=== PATIENT | female | born 1995 | race Caucasian/White ===

== ENCOUNTER 2017-07-29 14:34 | Emergency (ER) | payer OTHER, MEDICAID, SELFPAY ==
[2017-07-29 14:35] VITALS: BP 146/97; PULSE 97; RESP 16; TEMP 36.7; O2SAT 96; BMI 23.0
--- NOTE | 2017-07-29 14:41 | [facility].EDCP ---
ED Disposition Clinical Impression: Atypical chest pain Disposition: Home, Self-Care Condition on Discharge: Good Instructions: DI for Atypical Chest Pain Additional Instructions: Additional instructions for CHEST PAIN: See your physician as soon as possible for further evaluation. Return immediately if worsening chest pain, vomiting, shortness of breath, fever, coughing of blood. Referrals: Liliam Madrigal [Primary Care Provider] - - Critical Care Critical Care Time: No Attestation: On , the high probability of a clinically significant, sudden or life threatening deterioration of the following system(s) required my full and direct attention, intervention and personal management. The time I documented below is in addition to time spent performing reported procedures but includes the following listed in this critical care notation. Medical Decision Making Vital Signs: 07/29/17 14:35 Temperature 98.1 F Temperature Source Oral Pulse Rate [Right Brachial] 97 H Respiratory Rate 16 Blood Pressure [Right Arm] 146/97 Blood Pressure Mean [Right Arm] 113 Blood Pressure Source [Right Arm] Automatic Cuff Blood Pressure Position [Right Arm] Sitting 02 Sat by Pulse Oximetry 96 Oxygen Delivery Method Room Air - Lab Data Lab Results 07/29/17 15:15: WBC 3.8 L, RBC 4.54, Hgb 12.9, Hct 40.3, MCV 88.7, MCH 28.4, MCHC 32.0, RDW 12.7, Plt Count 248, MPV 7.7, Neut % (Auto) 49.2, Lymph % (Auto) 40.5, [place] % (Auto) 7.0, Eos % (Auto) 2.0, Baso % (Auto) 1.3, Neut # (Auto) 1.9, Lymph # (Auto) 1.5, [place] # (Auto) 0.3, Eos # (Auto) 0.1, Baso # (Auto) 0.1 07/29/17 15:15: Sodium 142, Potassium 4.1, Chloride 108 H, Carbon Dioxide 31, Anion Gap 7.1, BUN 9, Creatinine 0.84, Estimated Creat Clear 99, Estimated GFR 86, Est GFR ( Amer) 104, Glucose 98, Calcium 8.5, Total Bilirubin 0.4, AST 18, ALT 17, Alkaline Phosphatase 80, Troponin I < 0.02, Total Protein 6.5, Albumin 3.6, Globulin 2.9, Albumin/Globulin Ratio 1.2, TSH 2.78 Result diagrams: 07/29/17 15:15 07/29/17 15:15 - Radiology Data #1 Image(s): Chest Image Reviewed: Yes I have reviewed radiologist's interpretation X-ray interpreted by radiologist: No acute process. 1 x 2 cm right paratracheal density which could be a lymph node - ECG Data Tracing #1 EKG interpreted by Jesse Daigle MD: Rhythm: sinus Rate: 97 [place]: normal Ectopy: none Conduction: normal ST Segment Changes: none T Wave Changes: none Q Waves: none No evidence of acute ischemia or injury Baseline artifact present, but I consider the EKG adequate for accurate interpretation. - Yogi Inquiry Pt receiving controlled substance: No Medical Decision Making Narrative: 4:09 PM: Patient states she still feels fine. I estimate there is LOW risk for PULMONARY EMBOLISM, ACUTE CORONARY SYNDROME, OR THORACIC AORTIC DISSECTION, thus I consider the discharge disposition reasonable. Chest Pain HPI - General Chief Complaint: Chest Pain Stated Complaint: chest palpitations Mode of Arrival: Ambulatory Limitations: No Limitations Description of Symptoms (Recalled from ER Triage Doc. by RN): chest pain that she stated feels like pressure and palpitations. no exertion at time noted - History of Present Illness HPI narrative: The patient complains of chest pain off and on since last evening. It lasts several hours at a time and she describes it as a pressure. She feels like she cannot get a deep enough breath, but no pain with breathing. Fever. No hemoptysis. No vomiting. She has a history of gastroesophageal reflux, but this is different. No history of heart or lung problems. Currently denies discomfort. No recent travel, surgery, hospitalization. She is not on any sort of control pill or hormone treatments of any sort. PULMONARY EMBOLISM RULE-OUT CRITERIA: 1. Age > 49? No 2. Pulse greater than 99/min? No 3. Room air pulse ox <95%? No 4. Hemoptysis? No 5. On e
--- NOTE | 2017-07-29 14:42 | XR_ITS ---
XR chest 2V HISTORY: ITS.REASON: heart palpitations ORDERING PHYSICIAN: Jesse Daigle MD PATIENT AGE: 22 years COMPARISON: None available FINDINGS: The cardiomediastinal silhouette and pulmonary vascularity are within normal limits. There is increased density in the lower right paratracheal region which may be due to overlying vasculature or paratracheal adenopathy. This area measures approximately 2 x 1 cm The lungs are clear without infiltrates, suspicious nodules, or pleural effusions. No acute bony abnormalities. IMPRESSION: 1. No acute finding. 2. Right paratracheal density which could be due to a lymph node at 2 x 1 cm
[2017-07-29 15:27] LABS: Basophils # 0.1 K/mm3 (0-0.2); Basophils % 1.3 % (0.1-2.0); Eosinophils # 0.1 K/mm3 (0.0-0.4); Hematocrit 40.3 % (37.0-47.0); Hemoglobin 12.9 g/dL (12.2-16.2); Lymphocytes # 1.5 K/mm3 (0.7-4.5); Lymphocytes % 40.5 K/mm3 (10-50); Mean Corpuscular Hemoglobin 28.4 pg (27.0-31.2); Mean Corpuscular Volume 88.7 fl (81-99); Mean Platelet Volume 7.7 fl (7.4-10.4); Monocytes # 0.3 K/mm3 (0.1-1.0); Neutrophils # 1.9 K/mm3 (1.8-7.8); Neutrophils % 49.2 % (37.0-80.0); Platelet Count 248 K/mm3 (142-424); Red Blood Count 4.54 M/mm3 (4.20-5.40); Red Cell Distribution Width 12.7 % (11.5-17.5); White Blood Count 3.8 K/mm3 (4.8-10.8)
[2017-07-29 15:56] LABS: Troponin I < 0.02 ng/ml (0.00-0.06)
[2017-07-29 16:01] LABS: Alanine Aminotransferase 17 U/L (12-78); Albumin Level 3.6 gm/dL (3.4-5.0); Albumin/Globulin Ratio 1.2 (1.1-1.8); Alkaline Phosphatase 80 U/L (46-116); Anion Gap 7.1 mEq/L (5-15); Aspartate Amino Transferase 18 U/L (15-37); Bilirubin,Total 0.4 mg/dL (0.2-1.0); Blood Urea Nitrogen 9 mg/dL (7-18); Calcium 8.5 mg/dL (8.5-10.1); Carbon Dioxide 31 mmol/L (21.0-32.0); Chloride 108 mmol/L (98-107); Creatinine Clearance Estimated 99 mL/min (0-300); Creatinine,Serum 0.84 mg/dL (0.55-1.02); Estimated Glomerular Filt Rate 86 ml/min (>60); GFR (African American) 104 ML/MIN (>60); Globulin 2.9 gm/dl (1.3-3.2); Glucose 98 mg/dL (74-106); Potassium 4.1 mmoL/L (3.5-5.1); Sodium 142 mmol/L (136-145); Thyroid Stimulating Hormone 2.78 uIU/ml (0.358-3.740); Total Protein,Serum 6.5 gm/dL (6.4-8.2)
[2017-07-29 16:18] VITALS: BP 115/72; PULSE 89; RESP 18; TEMP 36.8; O2SAT 99
== END 2017-07-29 16:18 | disposition home or self-care (01) ==
PROVIDERS: Emergency Provider Emergency Medicine; Family Provider Family Medicine; PCP Physician Assistant
DX: R07.89 Other chest pain (principal)
CPT/HCPCS: 36415; 71046; 80053; 84443; 84484; 85025; 93005; 93041; 99284